=== PATIENT | male | born 1940 ===

== ENCOUNTER 2018-03-21 07:41 | Day surgery (SDC) | payer OTHER, MEDICARE ==
[2018-03-15 15:25] VITALS: BMI 23.4
[2018-03-21] MEDS ORDERED: Lidocaine 2% Inj (20ml) ONE (09:23)
[2018-03-21] MEDS ORDERED: Iohexol 350mgl/ml 50 ML ONE (09:23)
[2018-03-21] MEDS ORDERED: Iodixanol 320 mg/ml 150 ml Bottle IV ONE (09:23)
[2018-03-21] MEDS ORDERED: Nitroglycerin 50mg in D5W 0 MG/0 ML BOTTLE IV ONE (09:44)
[2018-03-21] MEDS ORDERED: Verapamil 0 ML ONE (09:44)
[2018-03-21] MEDS ORDERED: Midazolam 2 MG/2 ML VIAL ONE (09:50)
--- NOTE | 2018-03-21 10:55 | CARDCATH ---
PROCEDURE DATE: 03/21/2018 INDICATIONS: Lee Murphy is a 77-year-old man who presented to [facility] with complaints of fatigue, lethargy, weakness and was ruled in for acute coronary syndrome, [id number] myocardial infarction with positive troponins. He underwent cardiac diagnostic angiogram at [facility], which showed high-grade LAD disease. He was therefore brought for intervention of the two tandem lesions in the LAD. PROCEDURES PERFORMED: Coronary angiogram via right femoral arterial access approach, 6-[place] right femoral arterial access, percutaneous transluminal coronary angioplasty and stenting of proximal and mid left anterior descending, intravascular ultrasound guided deployment of 4 x 38 [place] drug-eluting stent in mid left anterior descending, regeneration from 75% down to 0% and percutaneous transluminal coronary angioplasty, stenting of proximal left anterior descending, deployment of 4.5 x 18 mm [place] drug-eluting stent, regeneration down to 0% RAYNE 3 flow, Mynx closure device for hemostasis. ANGIOGRAPHIC FINDINGS: Coronary angiogram performed showed proximal LAD lesion was about 80% stenotic with mid LAD lesion of 70%. IVUS interrogation was done. This confirmed minimal luminal area of less than 2 at both these parts with heavy plaque burden. The mid lesion was predilated with a 3.5 balloon and then stented with a 4 x 38 [place] drug-eluting stent and subsequently the proximal lesion was stented with a 4.5 x 18 mm [place] drug-eluting stent. Final angiogram done showed regeneration down to 0% RAYNE 3 flow. IMPRESSION: Successful revascularization of the proximal and mid left anterior descending, deployment of 2 drug-eluting stents. RECOMMENDATIONS: The patient can be transferred back to [place] in about 4 hours. Keep the patient on dual antiplatelet therapy for 1 year, guideline directed therapy for CAD. Franko Alexander MD cc: Adán Cartwright MD
[2018-03-21] MEDS ORDERED: Sodium Chloride 0.9% 1,000 ML IV SCH (11:00)
--- NOTE | 2018-03-21 12:32 | CARD ---
APPROVED REPORT Date of service: 03/21/2018 EKG Measurement Heart [id number] <Conclusion> Normal sinus rhythm Minimal voltage criteria for LVH, may be normal variant T wave abnormality, consider anterolateral ischemia Prolonged QT Abnormal ECG
[2018-03-21 14:11] VITALS: RESP 18; TEMP 97.8
[2018-03-21 14:59] VITALS: BP 122/55; PULSE 80
== END 2018-03-21 15:31 | disposition short-term general hospital (02) ==
LOC: CATH 07:41 → 2RSO 11:02 → CATH 15:31
PROVIDERS: ATTEND Internal Medicine Interventional Cardiology
DX: I21.4 Non-ST elevation (NSTEMI) myocardial infarction (principal); I95.9 Hypotension, unspecified; I12.0 Hypertensive chronic kidney disease with stage 5 chronic kidney disease or end stage renal disease; E11.22 Type 2 diabetes mellitus with diabetic chronic kidney disease; Z86.73 Personal history of transient ischemic attack (TIA), and cerebral infarction without residual deficits; R63.4 Abnormal weight loss; D63.1 Anemia in chronic kidney disease; Z87.891 Personal history of nicotine dependence; E78.00 Pure hypercholesterolemia, unspecified; M19.90 Unspecified osteoarthritis, unspecified site; Z91.81 History of falling; K21.9 Gastro-esophageal reflux disease without esophagitis; Z90.49 Acquired absence of other specified parts of digestive tract; Z88.1 Allergy status to other antibiotic agents; E78.5 Hyperlipidemia, unspecified; F41.9 Anxiety disorder, unspecified; F32.89 Other specified depressive episodes; Z99.2 Dependence on renal dialysis
CPT/HCPCS: 82948; 85175; 92978; 93005; 93454; 99152; 99153; C1725; C1753; C1760; C1769 ×2; C1874 ×2; C1887; C2629; C9600; J1644 ×2; J2250; J3010; J7030; Q9967 ×2